=== PATIENT | female | born 1935 | race Two or more races ===

== ENCOUNTER 2025-05-26 18:21 | Emergency (ER) | payer OTHER ==
[~2025-05-26] VITALS: Ht 160 cm; Wt 61.2 kg
[2025-05-26] MEDS ORDERED: AZOR 5-20 MG T1 EACH (19:08)
[2025-05-26] MEDS ORDERED: CARVEDILOL ER40 MG (19:09)
[2025-05-26] MEDS ORDERED: ECOTRIN81 MG (19:11)
[2025-05-26] MEDS ORDERED: TETANUS & DIPHTHERIA TOX,ADULT 0.5 ML VIAL IM STA (19:29)
[2025-05-26] MEDS ORDERED: CEFTRIAXONE SODIUM 1,000 MG VIAL IM STA (19:29)
[2025-05-26] MEDS ORDERED: CEFTRIAXONE SODIUM 1,000 MG VIAL ONE (20:31)
[2025-05-26] MEDS ORDERED: DIPHTH,PERTUSS(ACELL),TET VAC 0.5 ML SYRINGE IM ONE (20:32)
[2025-05-26] MEDS ORDERED: LIDOCAINE HCL 1% 10ML VIAL ONE (20:35)
[2025-05-26] MEDS ORDERED: AMOX1TAB5 PO (21:20)
== END 2025-05-26 21:56 | disposition home or self-care (01) ==
LOC: ER 18:21
DX: S60.872A Other superficial bite of left wrist, initial encounter (principal); L03.114 Cellulitis of left upper limb; W55.01XA Bitten by cat, initial encounter; Y93.89 Activity, other specified; Y92.89 Other specified places as the place of occurrence of the external cause; Z91.040 Latex allergy status; Z88.2 Allergy status to sulfonamides; Z91.041 Radiographic dye allergy status; Z88.1 Allergy status to other antibiotic agents; I10 Essential (primary) hypertension
CPT/HCPCS: 90471; 90714; 96372; 99282; J0696; J1670